=== PATIENT | male | born 1960 | race Caucasian/White ===

== ENCOUNTER 2017-12-04 00:15 | Emergency (ER) | payer OTHER ==
[~2017-12-04] VITALS: Ht 165.1 cm; Wt 104.3 kg
[~2017-12-04 00:15] MED LIST: ADULT LOW DOSE81 MG PO; BACTRIM DS TAB1 EACH PO; GLUCOPHAGE1000 MG PO; IBUPROFEN 800800 M1 PO; LISINOPRIL20 MG PO; LORTAB 5 MG/5001 TA1 PO; METFORMIN HCL500 M2 PO; MULTIVITAMINS; PRINIVIL20 MG PO; [UNRECOGNIZED DRUG - REMARK]; [UNRECOGNIZED DRUG - REMARK]
[2017-12-04] MEDS ORDERED: APIDRA (00:36)
[2017-12-04] MEDS ORDERED: PRINIVIL20 MG PO (02:02)
[2017-12-04] MEDS ORDERED: PREDNISONE50 MG PO (02:05)
[2017-12-04] MEDS ORDERED: METFORMIN HCL500 MG PO (02:06)
[2017-12-04 02:28] VITALS: BP 166/87
== END 2017-12-04 02:28 | disposition home or self-care (01) ==
LOC: M.ERS 00:15
DX: R21 Rash and other nonspecific skin eruption (principal); T38.3X5A Adverse effect of insulin and oral hypoglycemic [antidiabetic] drugs, initial encounter; I10 Essential (primary) hypertension; E11.9 Type 2 diabetes mellitus without complications; F17.210 Nicotine dependence, cigarettes, uncomplicated; Y92.89 Other specified places as the place of occurrence of the external cause